=== PATIENT | female | born 1945 | race Two or more races ===

== ENCOUNTER → 2021-07-12 | Outpatient (CLI) | payer OTHER ==
[~2021-07-12] MED LIST: AZEL6DRO2 EACHEYE; CYCL10TA19 PO; OMEP20TA8 PO
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
== END | disposition home or self-care (01) ==
LOC: PNCL 14:27
PROVIDERS: ATTEND Anesthesiology
DX: M54.2 Cervicalgia (principal); M79.601 Pain in right arm; M19.90 Unspecified osteoarthritis, unspecified site; K21.9 Gastro-esophageal reflux disease without esophagitis; Z79.899 Other long term (current) drug therapy; Z90.49 Acquired absence of other specified parts of digestive tract; Z98.890 Other specified postprocedural states
CPT/HCPCS: 99214; G0463

== ENCOUNTER → 2021-07-26 | Outpatient (CLI) | payer OTHER ==
[~2021-07-26] MED LIST changes: +IOHEXOL 180 MG/ML 10 ML VIAL. ONE; +methylPREDNISolone ACETATE 40 MG/ML VIAL. ONE; +methylPREDNISolone ACETATE 80 MG/ML VIAL. ONE
--- NOTE | 2021-07-26 11:48 | PDOC4 ---
Procedure Note: ICD 10 Code: ICD 10 Code: M54.12 M50.30 M48.02 Procedure Note: Patient was consented for cervical epidural steroid injection with fluoroscopic guidance. Risks were discussed including but not limited to: Bleeding, infection, possibility of epidural hematoma and subsequent neurological compromise, dural puncture, headaches, spinal cord and/or nerve damage, side effects of steroid medication, and poor results regarding pain control. Patient understands and wished to proceed. Procedure cervical epidural steroid injection at the C6-7 level, using local a nesthetic under sterile prep and drape using C-arm fluoroscopic guidance under local anesthesia medications injected ;120 mg Depo-Medrol +5 mL normal saline and 2 mL contrast; condition at discharge is stable patient tolerated procedure well. and had no complications ROJELIO CARABALLO MD Jul 26, 2021 11:48
--- NOTE | 2021-07-26 11:48 | PDOC ---
Progress Note - Pain Clinic Date of Service: DOS: DATE: 07/26/21 TIME: 11:44 Diagnosis: Dx: Cervical radiculopathy with cervical degenerative disease and cervical spinal stenosis History or Present Illness: HPI: 75-year-old female returns with complaints of pain base the neck and bilateral upper extremities left greater than right shoulders upper back mid back and upper extremities with radiating pain to the arms and hands again worse on the left side than the right but present bilaterally. Patient reports is still significant with repetitive motions reaching overhead with her hands lifting and reaching forward and any weight lifting or repetitive weight lifting motions also driving patient reports it wakes her from sleep about once every 6 hours does not cause any motor deficits but significant fatigability of the upper extremities especially on the left side. Patient no bowel or bladder incontin ence. Physical Exam: VS: Blood pressure is 160/96 pulse 68 respirations 18 temperature 98.6 F height is 5 feet 5 inches weight is 156 pounds PE: PHYSICAL EXAMINATION: GENERAL: The patient is awake, alert, oriented, appropriate, very pleasant in demeanor, patient companied by her . HEENT: Shows normocephalic, atraumatic. Extraocular movements are intact and symmetrical. Oral cavity: Mucous membranes moist and pink. NECK: Shows anterior throat supple without palpable lymphadenopathy noted. Swallow reflex symmetrical. CHEST: Shows normal on inspection. Breath sounds are clear bilaterally, no rales or rhonchi. HEART: Shows S1, S2 clear. No murmurs auscultated. ABDOMEN: Soft, nontender, nondistended. No palpable organomegaly is noted. BACK: Shows spine grossly in the midline. Normal-appearing cervical lordotic curvature. Cervical paraspinous muscles show symmetrical inspection, on palpation some moderate tenderness diffusely bilaterally diffusely without significant radiation. Patient shows good rotation motion cervical spine both laterally as well as extension and flexion without significant limited rotation as well. There is slightly increased thoracic kyphosis, some minor flattening of the lumbar lordotic curvature. EXTREMITIES: Upper extremities show deep tendon reflexes 2+ in the patellar and tendo calcaneus tendons. Motor exam is 5 on a scale of 5 with right dorsiflexion, extension, quadriceps and hamstring flexion and 4/5 on the left. Peripheral pulses are 2+ posterior tibial. No peripheral edema is noted bilaterally. Upper extremities are warm and dry to touch, equal in color and appearance. SKIN: Shows warm and dry, good turgor. No edema. No sores, rashes or bruising throughout. Procedure: Procedure: Options were discussed with the patient. Patient's old chart was reviewed as her current medication regimen updated current review of systems updated today as well. We will proceed with a cervical epidural steroid injection today with fluoroscopic guidance. Risks were discussed including but not limited to: Bleeding, infection, possibility of epidural hematoma and subsequent neurological compromise, dural puncture, headaches, spinal cord and/or nerve damage, side effects of steroid medication, and poor results regarding pain control. Patient understands and wished to proceed. Patient return to the clinic in approximate 2 weeks for follow-up, was counseled as to return appointment, activity level, and side effect to be aware of. Medication Injected: Med Injected: Procedure cervical epidural steroid injection at the C6-7 level, using local anesthetic under sterile prep and drape using C-arm fluoroscopic guidance under local anesthesia medications injected ;120 mg Depo-Medrol +5 mL normal saline and 2 mL contrast; condition at discharge is stable patient tolerated procedure well. and had no complications Condition at Discharge: Condition at Discharge: Condition at discharge stable, patient tolerated the procedure well and had no complications. ROJELIO CARABALLO MD Jul 26, 2021 11:48
== END | disposition home or self-care (01) ==
LOC: PNCL 10:49
PROVIDERS: ATTEND Anesthesiology
DX: M50.10 Cervical disc disorder with radiculopathy, unspecified cervical region (principal); M48.02 Spinal stenosis, cervical region; M54.12 Radiculopathy, cervical region; Z79.899 Other long term (current) drug therapy; Z88.0 Allergy status to penicillin; Z91.041 Radiographic dye allergy status; Z88.8 Allergy status to other drugs, medicaments and biological substances
CPT/HCPCS: 62321; J1030; J1040; Q9965

== ENCOUNTER → 2021-08-09 | Outpatient (CLI) | payer OTHER ==
[~2021-08-09] MED LIST changes: -IOHEXOL 180 MG/ML 10 ML VIAL. ONE; -methylPREDNISolone ACETATE 40 MG/ML VIAL. ONE; -methylPREDNISolone ACETATE 80 MG/ML VIAL. ONE
--- NOTE | 2021-08-09 11:31 | PDOC ---
Progress Note - Pain Clinic Date of Service: DOS: DATE: 08/09/21 TIME: 11:26 Diagnosis: Dx: Cervical radiculopathy with cervical degenerative disease and cervical spinal stenosis History or Present Illness: HPI: 75-year-old female returns for follow-up status post cervical epidural steroid injection x1. Patient reports 70% improvement for the last 2-1/2 weeks pain returning but only very much reduced level in the left shoulder and upper extremity with radiating pain into the arm and hand into the deltoid as well as the anterior bicep and also into the forearm mainly in the medial aspect but still present patient reports has been increasing her activity with greater ease and comfort and work activities with greater ease with lifting items with much greater ease has not been dropping things as much with the left hand still does drop some items occasionally when arm feels fatigued patient relates a story of unloading some groceries a few days ago and had difficulty with holding some heavier items because of the fatigue in the left arm patient rates her pain as a form scale 10 at its average 6 at its worst and a 1 at its least and is a 2 today. Patient reports dull and aching in the neck although she is moving her neck with much greater ease and comfort doing household activities at work activities again with much greater ease and sleeping better at night patient reports does not awaken her from sleep at this time. Patient does report that her head felt "heavy "on 1 or 2 occasions over the last week but no new deficits. Patient reports she is not taking nearly as much Tylenol now as she had prior to the injection. Patient overall is quite pleased with her progress thus far. Physical Exam: VS: Blood pressure is 144/90 pulse 60 respirations 18 temperature is 98.1 F height 5 inches weight is 157 pounds PE: PHYSICAL EXAMINATION: GENERAL: The patient is awake, alert, oriented, appropriate, very pleasant in demeanor HEENT: Shows normocephalic, atraumatic. Extraocular movements are intact and symmetrical. Oral cavity: Mucous membranes moist and pink. Dentition is intact. NECK: Shows anterior throat supple without palpable lymphadenopathy noted. Swallow reflex symmetrical. CHEST: Shows normal on inspection. Breath sounds are clear bilaterally, distant but no rales or rhonchi. HEART: Shows S1, S2 clear. No murmurs auscultated. ABDOMEN: Soft, nontender, nondistended. No palpable organomegaly is noted. BACK: Shows spine grossly in the midline. Normal-appearing cervical lordotic curvature. Cervical paraspinous muscles show symmetrical inspection, on palpation some moderate tenderness diffusely in the inferior aspect cervical paraspinous muscle more left than the right but without specific trigger points without radiation. Patient does show good rotation motion cervical spine both laterally greater than 45 degrees closer 90 degrees as well as full extension full forward flexion without significant guarding as on previous exam. There is slightly increased thoracic kyphosis, some minor flattening of the lumbar lordotic curvature. EXTREMITIES: Upper extremities show deep tendon reflexes 2+ in the biceps and triceps tendons. 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 Peripheral pulses are 2+ radial. No peripheral edema is noted bilaterally. Upper extremities are warm and dry to touch, equal in color and appearance. SKIN: Shows warm and dry, good turgor. No edema. No sores, rashes or bruising throughout. Procedure: Procedure: Options were discussed with patient. Patient chart was reviewed as her current medication regimen updated current review of systems updated today as well. Patient with persistent radiculopathy in C6-7 dermatomal distribution in the left upper extremity. Improved after first injection about 70% with pain returning as noted. We will preauthorize patient for second cervical epidural steroid injection today with fluoroscopic guidance. Patient will continue with stretching and strength exercises as well as oral analgesics as necessary in the meantime. Once approved, patient will return for translaminar approach C6-7 level cervical epidural steroid injection with fluoroscopic guidance. Medication Injected: Med Injected: None Condition at Discharge: Condition at Discharge: Condition at discharge is stable. ROJELIO CARABALLO MD Aug 09, 2021 11:31
== END | disposition home or self-care (01) ==
LOC: PNCL 10:59
PROVIDERS: ATTEND Anesthesiology
DX: M50.10 Cervical disc disorder with radiculopathy, unspecified cervical region (principal); M48.02 Spinal stenosis, cervical region; Z79.899 Other long term (current) drug therapy; Z88.0 Allergy status to penicillin; Z91.041 Radiographic dye allergy status; Z88.8 Allergy status to other drugs, medicaments and biological substances
CPT/HCPCS: 99212; G0463

== ENCOUNTER → 2021-09-17 | Outpatient (CLI) | payer OTHER ==
--- NOTE | 2021-09-17 16:26 | PDOC ---
Progress Note - Pain Clinic Date of Service: DOS: DATE: 09/17/21 TIME: 16:19 Diagnosis: Dx: Cervical radiculopathy with cervical degenerative disease and cervical spinal stenosis History or Present Illness: HPI: 75-year-old female returns in follow-up status post cervical epidural steroid injection x1. Patient reports about 70% improvement with the first injection July 26/2022. Patient reports she did very well for about 3 weeks following the injection the pain began to return gradually without the result of any specific injury or accident into the base of the neck and shoulders in the left upper extremity left forearm and hand as well as some tingling and numbness in the area patient describes as aching and burning also a hot sensation in the head and back of the neck as well as the left arm is is worse at night patient reports also worse with motions weightlifting with left arm and weightbearing repetitive motions at work reaching forward or reaching with weight in her hand on the left side patient reports no loss of motor function but significant fatigability of the left upper extremity compared to the right. Patient reports especially at night that awakens her she has trouble sleeping as he is tossing and turning because of the pain. Patient reports no overt motor loss but significant fatigue as noted. Patient rates her pain as a 10 on scale 10 is worst over the past week 6 on average 4 at its least, and is a 6 today. Patient scribes aching and sharp in the neck and back of the shoulder on the left side rating to the arm triceps biceps as well as into the forearm and hand with some numbness and tingling in the first and second fingers. Patient continues to do stretching and strengthening exercises. Patient continues to see her chiropractor currently and is going later today as well. Patient reports this helps and he is doing some acupuncture with her as well which helps but only temporarily about 4 to 5 hours after the treatments before the pain returns. Patient continues to take oral analgesics Tylenol as well as ibuprofen and alternates these at home but again only decrease the pain by about 20 to 30%. Physical Exam: VS: Blood pressure is 152/93 pulse 69 respiration 20 temperature 97.7 F weight is 157 pounds. PE: PHYSICAL EXAMINATION: GENERAL: The patient is awake, alert, oriented, appropriate, very pleasant in demeanor, patient companied by her . HEENT: Shows normocephalic, atraumatic. Extraocular movements are intact and symmetrical. Oral cavity: Mucous membranes moist and pink. NECK: Shows anterior throat supple without palpable lymphadenopathy noted. Swallow reflex symmetrical. CHEST: Shows normal on inspection. Breath sounds are clear bilaterally, distant but no rales rhonchi wheezes auscultated. HEART: Shows S1, S2 clear. No murmurs auscultated. ABDOMEN: Soft, nontender, nondistended. No palpable organomegaly is noted. No rebound or guarding demonstrated. BACK: Shows spine grossly in the midline. Normal-appearing cervical lordotic curvature. Cervical paraspinous muscles show symmetrical with inspection, palpation some moderate tenderness diffusely bilaterally diffusely without significant radiation. Patient shows good rotation motion cervical spine with some moderate tenderness with far left lateral rotation past 45 degrees but not to the right also with extension but not with forward flexion. There is slightly increased thoracic kyphosis, some minor flattening of the lumbar lordotic curvature. EXTREMITIES: Upper extremities show deep tendon reflexes 2+ in the biceps and triceps tendons. 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 Peripheral pulses are 2+ radial. No peripheral edema is noted bilaterally. Upper extremities are warm and dry to touch, equal in color and appearance. SKIN: Shows warm and dry, good turgor. No edema. No sores, rashes or bruising throughout. Procedure: Procedure: Options were discussed with the patient. Patient's old chart was reviewed, as was her current medication regimen updated, and current review of systems updated today as well. We will preauthorize patient for cervical epidural steroid injection she did very well with the first injection the pain returning down radicular fashion following a C6-7 dermatomal distribution in the left upper extremity. Once approved, patient will return for translaminar approach C6-7 cervical epidural steroid injection with fluoroscopic guidance. In the meantime patient continue with stretching strength exercises as well as chiropractic treatment and oral analgesics as currently. Will call in new prescription for the patient of Medrol Dosepak also cyclobenzaprine 10 mg up to 3 times daily. Patient was given instructions as well as side effects aware with each of the medications. Medication Injected: Med Injected: None Condition at Discharge: Condition at Discharge: Condition at discharge is stable. ROJELIO CARABALLO MD Sep 17, 2021 16:25
== END | disposition home or self-care (01) ==
LOC: PNCL 15:42
PROVIDERS: ATTEND Anesthesiology
DX: M50.10 Cervical disc disorder with radiculopathy, unspecified cervical region (principal); M48.02 Spinal stenosis, cervical region; Z79.899 Other long term (current) drug therapy; Z88.0 Allergy status to penicillin; Z91.041 Radiographic dye allergy status; Z88.8 Allergy status to other drugs, medicaments and biological substances
CPT/HCPCS: 99212; G0463

== ENCOUNTER → 2021-09-24 | Outpatient (CLI) | payer OTHER ==
[~2021-09-24] MED LIST changes: +DEXAMETHASONE PRES.FREE 10 MG/ML VIAL. ONE; +IOHEXOL 180 MG/ML 10 ML VIAL. ONE
--- NOTE | 2021-09-24 13:09 | PDOC ---
Progress Note - Pain Clinic Date of Service: DOS: DATE: 09/24/21 TIME: 13:05 Diagnosis: Dx: Cervical radiculopathy with cervical degenerative disc disease and cervical spinal stenosis History or Present Illness: HPI: 75-year-old female returns for follow-up status post cervical epidural steroid injection x1 with about 70% improvement in her pain in the neck and left upper extremity patient since had a Medrol Dosepak which we prescribed for her last week and did very well with this as well with about 50% improvement but short- lived with the Medrol Dosepak once it was completed after about 3 days the pain returned. Patient reports she is not had any sleep for the last 3 days because of the pain the base the neck and the left shoulder and upper extremity radiating to the left arm deltoid into the posterior area of the triceps as well as the biceps into the forearm and hand with numbness and tingling in the fingers on the left side as well as the thumb patient reports is difficult with using fine motor movements with the left hand also twisting lids of jars with her left hand is difficult reaching overhead with the left arm becomes more painful as to sleeping especially on her left side. Patient reports no loss of motor function but significant fatigability of the left upper extremity with all of these activities. Patient rates pain 10 on scale 10 is worse over the past week 5 on average 5 its least and is a 7 today. Patient reports no deficits but significant fatigability of the left upper extremity. Physical Exam: VS: Blood pressure is 134/91 pulse 75 respirations 18 temperature 98.5 F weight 159 pounds. PE: PHYSICAL EXAMINATION: GENERAL: The patient is awake, alert, oriented, appropriate, very pleasant in demeanor, accompanied by her . HEENT: Shows normocephalic, atraumatic. Extraocular movements are intact and symmetrical. NECK: Shows anterior throat supple without palpable lymphadenopathy noted. Swallow reflex symmetrical. CHEST: Shows normal on inspection. Breath sounds are clear bilaterally, no rales rhonchi or wheezes auscultated. HEART: Shows S1, S2 clear. No murmurs auscultated. ABDOMEN: Soft, nontender, nondistended. BACK: Shows spine grossly in the midline. Normal-appearing cervical lordotic curvature. Cervical paraspinous muscles show symmetrical inspection, on palpation some moderate tenderness diffusely in the inferior aspect the cervical paraspinous musculature more tender on the left than the right, and into the superior medial trapezius on the left side without trigger points about atrophy right hypertrophy or asymmetry. Patient shows good rotation motion of the ce rvical spine both laterally as well as extension and flexion but with significant tenderness with far left lateral rotation past 45 degrees and extension as well as forward flexion but not to the right with rotation past 45 degrees. There is slightly increased thoracic kyphosis, some minor flattening of the lumbar lordotic curvature. EXTREMITIES: Upper extremities show deep tendon reflexes 2+ in the biceps and triceps tendons. 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 Peripheral pulses are 2+ radial. No peripheral edema is noted bilaterally. Upper extremities are warm and dry to touch, equal in color and appearance. SKIN: Shows warm and dry, good turgor. No edema. No sores, rashes or bruising throughout. Procedure: Procedure: Options were discussed with the patient. Patient's chart was reviewed as her current medication regimen updated current review of systems updated today as well. We will proceed with a cervical epidural steroid injection today with fluoroscopic guidance. Risks were discussed including but not limited to: Bleeding, infection, possibility of epidural hematoma and subsequent neurological compromise, dural puncture, headaches, spinal cord and/or nerve damage, side effects of steroid medication, and poor results regarding pain control. Patient understands and wished to proceed. Patient will return to the clinic in approximately 2 weeks for follow-up, was counseled as to return appointment, activity level, and side effect to be aware of. Medication Injected: Med Injected: Procedure cervical epidural steroid injection at the C6-7 level, using local anesthetic under sterile prep and drape using C-arm fluoroscopic guidance under local anesthesia medications injected ; 20 mg dexamethasone +5 mL normal saline and 2 mL contrast; condition at discharge is stable patient tolerated procedure well. and had no complications Condition at Discharge: Condition at Discharge: Condition at discharge is stable, patient tolerated the procedure well and had no complications. ROJELIO CARABALLO MD Sep 24, 2021 13:09
--- NOTE | 2021-09-24 13:10 | PDOC4 ---
Procedure Note: ICD 10 Code: ICD 10 Code: M54.12 M50.30 M4 8.02 Procedure Note: Patient was consented for cervical epidural steroid injection with fluoroscopic guidance. Risks were discussed including but not limited to: Bleeding, infection, possibility of epidural hematoma and subsequent neurological compromise, dural puncture, headaches, spinal cord and/or nerve damage, side effects of steroid medication, and poor results regarding pain control. Patient understands and wished to proceed. Procedure cervical epidural steroid injection at the C6-7 level, using local anesthetic under sterile prep and drape using C-arm fluoroscopic guidance under local anesthesia medications injected ; 20 mg dexamethasone +5 mL normal saline and 2 mL contrast; condition at discharge is stable patient tolerated procedure well. and had no complications ROJELIO CARABALLO MD Sep 24, 2021 13:10
== END | disposition home or self-care (01) ==
LOC: PNCL 12:06
PROVIDERS: ATTEND Anesthesiology
DX: M50.10 Cervical disc disorder with radiculopathy, unspecified cervical region (principal); M48.02 Spinal stenosis, cervical region; M54.12 Radiculopathy, cervical region; Z79.899 Other long term (current) drug therapy; Z88.0 Allergy status to penicillin; Z91.041 Radiographic dye allergy status; Z88.8 Allergy status to other drugs, medicaments and biological substances
CPT/HCPCS: 62321; J1100; Q9965